=== PATIENT | female | born 1955 | race Caucasian/White ===

== ENCOUNTER 2020-07-10 12:37 | Emergency (ER) | payer MEDICAID, OTHER ==
[~2020-07-10] VITALS: Ht 149.9 cm; Wt 56.2 kg
[~2020-07-10 12:37] MED LIST: ASPI-1153 PO; CHOL500037 PO; GLIP5TAB26 PO; HYDR25TA4 PO; LISI40TA4 PO; NOR10 PO; SIMV10TA2 PO; SITA25TA3 PO
[2020-07-10 13:16] VITALS: BP_SYST 162
--- NOTE | 2020-07-10 13:22 | NUR ---
Patient triaged and placed in waiting room. VSS and patient appears in no acute distress at this time. Accompanied by daughter, awaiting available bed, and MD notified of need for MSE.
--- NOTE | 2020-07-10 13:38 | NUR ---
Patient to ER bed 2 to gown for evaluation. Side rails up. Report given to MIKE Perez.
--- NOTE | 2020-07-10 13:40 | NUR ---
Pt brought by self, A&Ox4, pt presents to ER with abdominal pain/ fever 100.6 and headache, skin pink and warm, cap refill <3 , VSS, respirations even and unlabored.
--- NOTE | 2020-07-10 13:43 | NUR ---
in [facility] with side rails up. Pt is alert and oriented.
[2020-07-10 14:11] LABS: BASOPHILS # (AUTO) 0.1 K/uL (0.0-0.2); BASOPHILS % (AUTO) 0.5 % (0.0-2.0); EOSINOPHILS % (AUTO) 0.4 % (0.0-4.0); HEMATOCRIT 40.3 % (36-48); HEMOGLOBIN 13.4 g/dL (12.0-16.0); LYMPHOCYTES # (AUTO) 0.8 K/uL (1.0-5.5); LYMPHOCYTES % (AUTO) 7.9 % (20.5-51.5); MEAN CORPUSCULAR HEMOGLOBIN 30 pg (27-31); MEAN CORPUSCULAR HGB CONC 33 % (32-36); MEAN CORPUSCULAR VOLUME 89 fL (79.0-98.0); MONOCYTES # (AUTO) 0.6 K/uL (0.0-1.0); MONOCYTES % (AUTO) 6.1 % (1.7-9.3); NEUTROPHILS # (AUTO) 8.7 K/uL (1.8-7.7); NEUTROPHILS % (AUTO) 85.1 % (40.0-70.0); PLATELET COUNT (AUTO) 149 K/uL (130-430); RED BLOOD CELL COUNT(AUTO) 4.54 MIL/uL (4.2-6.2); RED CELL DISTRIBUTION WIDTH 13.4 % (9.0-15.0); WHITE BLOOD COUNT (AUTO) 10.2 K/uL (4.8-10.8)
[2020-07-10] MEDS ORDERED: SULFAMETHOXAZOLE/TRIMETHOPR DS 1 TABLET PO ONE (14:30)
[2020-07-10] MEDS ORDERED: CEPHALEXIN 500 MG CAPSULE PO ONE (14:30)
[2020-07-10 14:32] LABS: ALBUMIN 3.3 g/dL (3.4-4.8); CALCIUM 9.6 mg/dL (8.4-11.0); CREATININE 1.74 mg/dL (0.55-1.30); POTASSIUM 4.1 mmol/L (3.5-5.1); TOTAL BILIRUBIN 0.9 mg/dL (0.0-1.0)
[2020-07-10 14:36] VITALS: BP_SYST 162
--- NOTE | 2020-07-10 14:37 | NUR ---
Patient given written and verbal discharge instructions and verbalizes understanding. ER MD Salter discussed with patient the results and treatment provided. Patient in stable condition. ID arm band removed. Rx of bactrim and keflex given. Patient educated on pain management and to follow up with PMD. Pain Scale 1/10. Opportunity for questions provided and answered. Medication side effect fact sheet provided.
[2020-07-10 14:50] LABS: BILIRUBIN,URINE NEGATIVE (NEGATIVE); CLARITY/URINE SL CLOUDY (CLEAR); COLOR,URINE YELLOW (YELLOW); GLUCOSE,URINE 3+ (NEGATIVE); KETONES,URINE NEGATIVE (NEGATIVE); LEUKOCYTE ESTERASE ,URINE 2+ (NEGATIVE); NITRITE, URINE NEGATIVE (NEGATIVE); PH,URINE 5.5 (5.0-8.0); PROTEIN URINE 2+ (NEGATIVE); UROBILINOGEN,URINE 0.2 (0.2-1.0)
[2020-07-10 14:59] LABS: BLOOD, URINE NEGATIVE (NEGATIVE)
[2020-07-10 15:10] LABS: RBC,URINE NONE SEEN /HPF (0-3)
[2020-07-10 15:11] LABS: BACTERIA,URINE MODERATE /HPF (None Seen); TRICHOMONAS,URINE None Seen /HPF (None Seen); WBC,URINE >100 /HPF (0-3); YEAST,URINE None Seen /HPF (None Seen)
== END 2020-07-10 14:36 | disposition home or self-care (01) ==
LOC: SED 12:37
DX: L03.012 Cellulitis of left finger (principal); I12.9 Hypertensive chronic kidney disease with stage 1 through stage 4 chronic kidney disease, or unspecified chronic kidney disease; E11.22 Type 2 diabetes mellitus with diabetic chronic kidney disease; N18.9 Chronic kidney disease, unspecified; E11.65 Type 2 diabetes mellitus with hyperglycemia; N39.0 Urinary tract infection, site not specified; Z79.899 Other long term (current) drug therapy; Z79.82 Long term (current) use of aspirin
CPT/HCPCS: 36415; 80053; 81000-TC; 83605; 85025; 87040-TC; 87086; 87186-TC; 99283

== ENCOUNTER 2020-11-04 12:29 | Emergency (ER) | payer OTHER ==
[~2020-11-04] VITALS: Ht 149.9 cm; Wt 59.0 kg
[~2020-11-04 12:29] MED LIST changes: -ASPI-1153 PO; +ASPI-1393 PO
[2020-11-04 13:09] VITALS: BP_SYST 162
--- NOTE | 2020-11-04 13:13 | NUR ---
Pt triaged, v/s stable, no distress noted. Placed in waiting room.
--- NOTE | 2020-11-04 14:45 | NUR ---
ER Dr. Espitia at bedside examining patient.
[2020-11-04 15:45] VITALS: BP_SYST 162
--- NOTE | 2020-11-04 15:46 | NUR ---
Patient given written and verbal discharge instructions and verbalizes understanding. ER MD discussed with patient the results and treatment provided. Patient in stable condition. ID arm band removed. Rx of Bactrim given. Patient educated on pain management and to follow up with PMD. Pain Scale 0. Opportunity for questions provided and answered. Medication side effect fact sheet provided.
== END 2020-11-04 15:46 | disposition home or self-care (01) ==
LOC: SED 12:29
DX: L03.011 Cellulitis of right finger (principal); I12.9 Hypertensive chronic kidney disease with stage 1 through stage 4 chronic kidney disease, or unspecified chronic kidney disease; E11.22 Type 2 diabetes mellitus with diabetic chronic kidney disease; N18.9 Chronic kidney disease, unspecified; Z79.899 Other long term (current) drug therapy; Z79.82 Long term (current) use of aspirin
CPT/HCPCS: 99283